=== PATIENT | male | born 1990 | race Caucasian/White ===

== ENCOUNTER 2023-04-07 08:04 | Outpatient (CLI) | payer BC, SELFPAY | END 2023-04-07 08:05 | disposition home or self-care (01) | LOC: NFLDREF 04-10 08:00 | PROVIDERS: PCP Family Medicine; Referring Provider Family Medicine; Visit Provider Family Medicine | DX: R79.89 Other specified abnormal findings of blood chemistry (principal) | CPT/HCPCS: 80076; 84270; 84402; 84403 ==

== ENCOUNTER 2023-06-22 08:45 | Outpatient (CLI) | payer BC, SELFPAY | END 2023-06-22 08:46 | disposition home or self-care (01) | LOC: NFLDREF 06-23 12:07 | PROVIDERS: PCP Family Medicine; Referring Provider Family Medicine; Visit Provider Family Medicine | DX: R79.89 Other specified abnormal findings of blood chemistry (principal) | CPT/HCPCS: 80076; 82306; 84270; 84402; 84403 ==

== ENCOUNTER 2023-11-26 08:14 | Outpatient (CLI) | payer BC, SELFPAY ==
--- OUTSIDE RECORDS SUMMARY | 2023-12-03 07:48 | XMS_ITS | Clinical Summary ---
Author Name Unknown Organization [employer] [facility] Address [place], [place] [address] Care Team Providers Care Curriculum Manager Name Role Phone Gordon Burgos MD Primary Care Provider [phone] Allergies No known active allergies Social History Tobacco Use Types Packs/Day Years Used Date Smoking Tobacco: Never Assessed Sex and Gender Information Value Date Recorded Sex Assigned at Not on file Gender Identity Not on file Sexual Orientation Not on file Last Filed Vital Signs Vital Sign Reading Time Taken Comments Blood Pressure 141/82 05/09/2021 4:51 PM CDT Pulse 94 05/09/2021 4:51 PM CDT Temperature - - Respiratory Rate 16 05/09/2021 4:51 PM CDT Oxygen Saturation 100% 05/09/2021 4:51 PM CDT Inhaled Oxygen Concentration - - Weight 124.7 kg (275 lb) 05/09/2021 4:51 PM CDT Height 182.9 cm (6') 05/09/2021 4:51 PM CDT Body Mass Index 37.3 05/09/2021 4:51 PM CDT Plan of Treatment Health Maintenance Due Date Last Done Comments Tdap 2000 Depression screening for age 12+ 2001 HIV for age 15-65 2004 BMI (ht and wt on same day) for age 18+ 2007 Hepatitis C screening for ag e 18-79 2007 Tetanus booster 2009 COVID-19 vaccine series ( season) 2023 Influenza for age 9-49 04/16/2024 Pneumococcal series for age 6-64 Aged Out No longer eligible based on patient's age to complete this topic Care Teams Curriculum Manager Relationship Specialty Start Date End Date Gordon Burgos MD [address] [place] [address] PCP - General Family Practice 05/09/21
== END 2023-11-26 08:15 | disposition home or self-care (01) ==
LOC: NFLDREF 12-03 07:47
PROVIDERS: PCP Family Medicine; Referring Provider Family Medicine; Visit Provider Family Medicine
DX: R79.89 Other specified abnormal findings of blood chemistry (principal); Z13.220 Encounter for screening for lipoid disorders
CPT/HCPCS: 80061; 80076; 84270; 84402; 84403

== ENCOUNTER 2024-05-18 07:55 | Outpatient (CLI) | payer BC, SELFPAY ==
--- OUTSIDE RECORDS SUMMARY | 2024-05-19 08:45 | XMS_ITS | Clinical Summary ---
Author Organization [employer] [facility] Address [place], [place] [address] Care Team Providers Care Medical Billing Supervisor Name Role Phone Gordon Burgos MD Primary Care Provider Allergies No known active allergies Social History [...] booster 2009 COVID-19 vaccine series ( season) 2024 Influenza for age 9-49 04/16/2024 Lipids for age 35-44 2024 Pneumococcal series for age 6-64 Aged Out No longer eligible based on patient's age to complete this topic Care Teams Medical Billing Supervisor Relationship Specialty Start Date End Date Gordon Burgos MD [address] [place] [address] PCP - General Family Practice 05/09/21
== END 2024-05-18 07:56 | disposition home or self-care (01) ==
LOC: NFLDREF 05-19 08:43
PROVIDERS: PCP Family Medicine; Referring Provider Family Medicine; Visit Provider Family Medicine
DX: Z00.00 Encounter for general adult medical examination without abnormal findings (principal); R79.89 Other specified abnormal findings of blood chemistry; E78.00 Pure hypercholesterolemia, unspecified; R53.83 Other fatigue
CPT/HCPCS: 80053; 80061; 84270; 84402; 84403; 85027

== ENCOUNTER 2025-07-20 08:13 | Outpatient (CLI) | payer BC, SELFPAY ==
[2025-07-20 13:50] LABS: Cannabinoid Screen Urine Negative (Negative); Methamphetamines Screen Urine Negative (Negative); Tricyclic Antidepressant Urine Negative (Negative)
== END 2025-07-20 08:14 | disposition home or self-care (01) ==
LOC: NPINS 08:14
PROVIDERS: PCP Family Medicine; Visit Provider Nurse Practitioner Psychiatric/Mental Health
DX: F90.2 Attention-deficit hyperactivity disorder, combined type (principal); E78.00 Pure hypercholesterolemia, unspecified; R79.89 Other specified abnormal findings of blood chemistry; E66.9 Obesity, unspecified
CPT/HCPCS: 80306

== ENCOUNTER 2025-07-20 08:15 | Outpatient (CLI) | payer BC, SELFPAY | END 2025-07-20 08:16 | disposition home or self-care (01) | LOC: NFLDREF 07-25 14:50 | PROVIDERS: PCP Family Medicine; Referring Provider Family Medicine; Visit Provider Family Medicine | DX: E78.00 Pure hypercholesterolemia, unspecified (principal); R79.89 Other specified abnormal findings of blood chemistry; E66.9 Obesity, unspecified; F32.A Depression, unspecified | CPT/HCPCS: 80053; 80061; 85027 ==